=== PATIENT | female | born 1950 | race Caucasian/White ===

== ENCOUNTER 2016-02-24 07:40 | Day surgery (SDC) | payer BC ==
[2016-02-23 13:54] VITALS: BMI 22.3
[2016-02-24] MEDS ORDERED: LIDOCAINE HCL/PF 1% SDV 5ML VIAL ONE (08:30)
[2016-02-24] MEDS ORDERED: SUCCINYLCHOLINE CHLORIDE 200 MG/10 ML VIAL ONE (08:30)
[2016-02-24] MEDS ORDERED: PROPOFOL 20 ML ONE ×2 (08:30)
[2016-02-24] MEDS ORDERED: ONDANSETRON 4 MG/2 ML VIAL ONE (08:38)
[2016-02-24] MEDS ORDERED: METOCLOPRAMIDE HCL INJECTION 10 MG/2 ML VIAL ONE (08:39)
[2016-02-24 09:07] VITALS: TEMP 98.2
[2016-02-24 10:20] VITALS: BP 168/68; PULSE 71
--- NOTE | 2016-02-27 15:07 | PATH ---
Surgical Pathology Report Patient Name: ARASELI IRELAND [facility]. Rec. #: [id number] /Age/Gender: 1950 (Age: 65) / F Account: [id number] Location: [facility]-ENDOSCOPY Taken: 02/24/2016 Received: 02/24/2016 Reported: 02/27/2016 Physicians: Fernando Gonzalez M.D. Specimen(s) Received A: BX ANTRUM B: BX GASTRIC EROSIONS C: BX GE JUNCTION ULCER Clinical History GERD, gastric ulcer 2 cm hiatal hernia, GE junction ulcer, erosive gastritis, antral ulcer Final Diagnosis A. STOMACH, ANTRUM, ULCER, BIOPSY: FOCALLY ULCERATED GASTRIC ANTRAL MUCOSA WITH ASSOCIATED FOCAL ACTIVE INFLAMMATION AND MODERATE CHRONIC GASTRITIS WITH FOCAL INTESTINAL METAPLASIA AND FOCAL LAMINA PROPRIA FIBROSIS AND REACTIVE GASTROPATHY. NEGATIVE FOR DYSPLASIA. IMMUNOSTAIN FOR H. PYLORI IS NEGATIVE FOR ORGANISMS. B. STOMACH, EROSIONS, BIOPSY: GASTRIC ANTRAL MUCOSA WITH MODERATE CHRONIC GASTRITIS AND REACTIVE GASTROPATHY WITH FOCAL SURFACE EROSION. IMMUNOSTAIN FOR H. PYLORI IS NEGATIVE FOR ORGANISMS. C. GE JUNCTION, ULCER, BIOPSY: FOCALLY ULCERATED SQUAMOUS MUCOSA WITH ASSOCIATED ACTIVE AND CHRONIC INFLAMMATION AND REFLUX TYPE CHANGES. NO COLUMNAR EPITHELIUM PRESENT (NO INTESTINAL METAPLASIA OF BELL'S ESOPHAGUS IDENTIFIED). NO FUNGAL ORGANISMS IDENTIFIED WITH PAS STAIN. Electronically Signed Lawson Pineda M.D. Gross Description A. Received in formalin, labeled "biopsy antral ulcer" are 2 samuel, irregular portions of soft tissue measuring 0.2 and 0.3 cm in greatest dimension. The specimens are submitted in toto in one cassette. B. Received in formalin, labeled "biopsy gastric erosion" is a samuel, irregular portion of soft tissue measuring 0.2 cm in greatest dimension. The specimen is submitted in toto in one cassette. C. Received in formalin, labeled "biopsy GE junction ulcer" is a samuel, irregular portion of soft tissue measuring 0.4 cm in greatest dimension. The specimen is submitted in toto in one cassette. 02/24/201602/24/2016
== END 2016-02-24 10:19 | disposition home or self-care (01) ==
LOC: JASU-ENDO 07:40
PROVIDERS: ATTEND Internal Medicine Gastroenterology
PROC: 0DB58ZX Excision of Esophagus, Via Natural or Artificial Opening Endoscopic, Diagnostic (ICD-10-PCS; 2016-02-24)
PROC: 0DB68ZX Excision of Stomach, Via Natural or Artificial Opening Endoscopic, Diagnostic (ICD-10-PCS; 2016-02-24)
PROC: 0DB98ZX Excision of Duodenum, Via Natural or Artificial Opening Endoscopic, Diagnostic (ICD-10-PCS; principal; 2016-02-24 08:30)
DX: K25.9 Gastric ulcer, unspecified as acute or chronic, without hemorrhage or perforation (principal); R12 Heartburn; K44.9 Diaphragmatic hernia without obstruction or gangrene
CPT/HCPCS: 88305-TC; 88312-TC; 88342-TC

== ENCOUNTER 2016-09-07 08:14 | Day surgery (SDC) | payer BC ==
[2016-09-06 12:20] VITALS: BMI 24.2
[2016-09-07] MEDS ORDERED: PROPOFOL 20 ML ONE (09:05)
[2016-09-07] MEDS ORDERED: METOCLOPRAMIDE HCL INJECTION 10 MG/2 ML VIAL ONE (09:14)
[2016-09-07] MEDS ORDERED: ONDANSETRON 4 MG/2 ML VIAL ONE (09:14)
[2016-09-07 09:41] VITALS: TEMP 98.2
[2016-09-07 09:56] VITALS: PULSE 65
[2016-09-07 13:10] VITALS: BP 123/78
== END 2016-09-07 11:35 | disposition home or self-care (01) ==
LOC: JASU-ENDO 08:14
PROVIDERS: ATTEND Internal Medicine Gastroenterology
PROC: 0DJ08ZZ Inspection of Upper Intestinal Tract, Via Natural or Artificial Opening Endoscopic (ICD-10-PCS; principal; 2016-09-07 09:00)
DX: K44.9 Diaphragmatic hernia without obstruction or gangrene (principal)

== ENCOUNTER 2020-07-08 16:42 | Emergency (ER) | payer BC ==
[2020-07-08 16:52] VITALS: BP 145/82; PULSE 104; TEMP 98.4; BMI 21.5
[2020-07-08] MEDS ORDERED: MAG HYDROX/AL HYDROX/SIMETH -MYLANTA- ORAL SUSPENSION PO ONE (18:26)
[2020-07-08] MEDS ORDERED: ACETAMINOPHEN 500 MG TABLET (FP) PO ONE (18:26)
[2020-07-08] MEDS ORDERED: FAMOTIDINE 20 MG TABLET PO ONE (18:26)
[2020-07-08] MEDS ORDERED: SODIUM CHLORIDE 500 ML IV STA (18:30)
[2020-07-08] MEDS ORDERED: ACETAMINOPHEN 325 MG TABLET (FP) ONE (18:33)
[2020-07-08] MEDS ORDERED: FAMOTIDINE 20 MG TABLET ONE ×2 (18:34→18:44)
[2020-07-08] MEDS ORDERED: MAG HYDROX/AL HYDROX/SIMETH 30 ML UNIT-DOSE CUP ONE ×2 (18:34→18:44)
[2020-07-08] MEDS ORDERED: ACETAMINOPHEN 500 MG TABLET (FP) ONE (18:44)
== END 2020-07-08 19:51 | disposition home or self-care (01) ==
LOC: JER 16:42
PROC: 3E0337Z Introduction of Electrolytic and Water Balance Substance into Peripheral Vein, Percutaneous Approach (ICD-10-PCS; principal; 2020-07-08)
DX: R10.13 Epigastric pain (principal)
CPT/HCPCS: 93005; 93010; 99285-25